=== PATIENT | male | born 1980 | race Caucasian/White ===

== ENCOUNTER 2017-12-31 17:15 | Emergency (ER) | payer OTHER ==
[~2017-12-31] VITALS: Ht 172.7 cm; Wt 72.6 kg
--- NOTE | 2017-12-31 18:22 | ED Chest Pain ---
General Chief Complaint: Chest Wall/Rib Pain Stated Complaint: CHEST PAIN Nursing Triage Note: AMB TO ROOM C/O CHEST PAIN FOR 2 DAYS WHEN TAKING DEEP BREATH. NO PAIN ON ADMIT. Nursing Sepsis Screen: No Definite Risk Source: patient Exam Limitations: no limitations History of Present Illness Date Seen by Provider: Dec 31, 2017 Time Seen by Provider: 17:48 Initial Comments Patient presents to the ER with a chief complaint that today he was expressing some pinprick sensations in the middle of his chest and his left chest but his last for a few seconds each and a total experience lasted for 10:15 minutes. At time he got to the ER. He says experience these sensations off and on for the past year but they've gotten progressively more frequent in the last week. 2 weeks. He says been taking L-arginine supplements and wonders it maybe those or why. He has no previous personal or family history of coronary artery disease. He does not smoke cigarettes he stopped drinking years ago. He does not use any recreational drugs. He says he was working out progressing pretty hard doing weight lifting and about 5 or 6 days ago he felt that he had some pain in his back so he started taking it easy. He's never had pain in his mid thoracic before. He has no other history of trauma. He is not having a cough, shortness of breath, nausea, fatigue, weakness, sweats, numbness, paresthesias in the hands. He says he is anxious about this. Incidentally he also has been for the past year having some pains in his ankles, knees and hands which she went saw his private doctor for and he thought maybe he had calcifications so he found a supplement online called K2 vitamins which are reported to remove calcium from the joints. He started taking that 5 days ago about the time his symptoms began to intensify. He stopped taking them today. Allergies and Home Medications Allergies Coded Allergies: No Known Drug Allergies (Unverified , 12/31/17) Home Medications No Active Prescriptions or Reported Meds Review of Systems Constitutional: No chills, No diaphoresis EENTM: No Blurred Vision, No Double Vision Respiratory: Denies Cough, Denies Shortness of Air Cardiovascular: See HPI, Denies Chest Pain, Denies Edema, Denies Irregular Heart Rate, Denies Lightheadedness, Denies Palpitations, Denies Syncope Gastrointestinal: Denies Abdominal Pain, Denies Constipated, Denies Diarrhea, Denies Nausea, Denies Poor Appetite, Denies Vomiting Genitourinary: Denies Burning, Denies Discharge Musculoskeletal: No joint swelling, No muscle pain, No muscle stiffness, No muscle twitching, No muscle weakness Past Jljhlaf-Xdbaxg-Knqcpv Hx Patient Social History Alcohol Use: Denies Use Recreational Drug Use: No Smoking Status: Never a Smoker Recent Foreign Travel: No Contact w/Someone Who Travel: No Recent Infectious Disease Expo: No Surgeries History of Surgeries: No Respiratory History of Respiratory Disorde: No Cardiovascular History of Cardiac Disorders: No Neurological History of Neurological Disord: No Genitourinary History of Genitourinary Disor: No Gastrointestinal History of Gastrointestinal Di: No Musculoskeletal History of Musculoskeletal Dis: No Endocrine History of Endocrine Disorders: No HEENT History of HEENT Disorders: No Cancer History of Cancer: No Psychosocial History of Psychiatric Problem: No Integumentary History of Skin or Integumenta: No Blood Transfusions History of Blood Disorders: No Physical Exam Vital Signs Vital Signs - First Documented 12/31/17 17:31 Temp 98.3 Pulse 92 Resp 18 B/P (MAP) 158/97 (117) O2 Delivery Room Air Capillary Refill : Less Than 3 Seconds General Appearance: No Apparent Distress, WD/WN HEENT: PERRL/EOMI, Normal ENT Inspection, Pharynx Normal Neck: Full Range of Motion, Non Tender, Supple Respiratory: Chest Non Tender, Lungs Clear, Normal Breath Sounds, No Accessory Muscle Use, No Respiratory Distress Cardiovascular: Regular Rate, Rhythm, No Edema, No Gallop, No Murmur, Normal Peripheral Pulses Gastrointestinal: Normal Bowel Sounds, Non Tender, Soft Extremity: Non Tender, No Calf Tenderness, No Pedal Edema Neurologic/Psychiatric: Alert, Oriented x3, No Motor/Sensory Deficits, Normal Mood/Affect, vocational aide II-XII Norm as Tested Skin: Normal Color, Warm/Dry Other comments No pain in his chest presently and not reproduced by direct palpation. He has no pain to direct palpation on her around his spine. Progress/Results/Core Measures Results/Orders Lab Results Laboratory Tests Test 12/31/17 17:42 Range/Units White Blood Count 7.4 4.3-11.0 10^3/uL Red Blood Count 5.23 4.35-5.85 10^6/uL Hemoglobin 15.5 13.3-17.7 G/DL Hematocrit 43 40-54 % Mean Corpuscular Volume 82 80-99 FL Mean Corpuscular Hemoglobin 30 25-34 PG Mean Corpuscular Hemoglobin Concent 36 32-36 G/DL Red Cell Distribution Width 12.4 10.0-14.5 % Platelet Count 167 130-400 10^3/uL Mean Platelet Volume 12.0 H 7.4-10.4 FL Neutrophils (%) (Auto) 75 42-75 % Lymphocytes (%) (Auto) 18 12-44 % Monocytes (%) (Auto) 5 0-12 % Eosinophils (%) (Auto) 2 0-10 % Basophils (%) (Auto) 0 0-10 % Neutrophils # (Auto) 5.5 1.8-7.8 X 10^3 Lymphocytes # (Auto) 1.3 1.0-4.0 X 10^3 Monocytes # (Auto) 0.4 0.0-1.0 X 10^3 Eosinophils # (Auto) 0.2 0.0-0.3 10^3/uL Basophils # (Auto) 0.0 0.0-0.1 10^3/uL Prothrombin Time 12.9 12.2-14.7 SEC INR Comment 1.0 0.8-1.4 Activated Partial Thromboplast Time 31 24-35 SEC Sodium Level 138 135-145 MMOL/L Potassium Level 3.6 3.6-5.0 MMOL/L Chloride Level 105 98-107 MMOL/L Carbon Dioxide Level 25 21-32 MMOL/L Anion Gap 8 5-14 MMOL/L Blood Urea Nitrogen 21 H 7-18 MG/DL Creatinine 1.03 0.60-1.30 MG/DL Estimat Glomerular Filtration Rate > 60 BUN/Creatinine Ratio 20 Glucose Level 139 H 70-105 MG/DL Calcium Level 9.3 8.5-10.1 MG/DL Magnesium Level 2.0 1.8-2.4 MG/DL Total Bilirubin 0.9 0.1-1.0 MG/DL Aspartate Amino Transf (AST/SGOT) 17 5-34 U/L Alanine Aminotransferase (ALT/SGPT) 33 0-55 U/L Alkaline Phosphatase 64 40-136 U/L Myoglobin 24.5 10.0-92.0 NG/ML Troponin I < 0.30 <0.30 NG/ML C-Reactive Protein High Sensitivity 0.07 0.00-0.50 MG/DL Total Protein 6.9 6.4-8.2 GM/DL Albumin 4.5 3.2-4.5 GM/DL My Orders Orders - LUCINA SANTIAGO Cbc With Automated Diff (12/31/17 18:14) Magnesium (12/31/17 18:14) Cardiac Profile 1 (12/31/17 18:14) Comprehensive Metabolic Panel (12/31/17 18:14) Myoglobin Serum (12/31/17 18:14) Protime With Inr (12/31/17 18:14) Partial Thromboplastin Time (12/31/17 18:14) O2 (12/31/17 18:14) Monitor-Rhythm Ecg Trace Only (12/31/17 18:14) Lipid Panel (01/01/18 06:00) Saline Lock/Iv-Start (12/31/17 18:14) Chest Pa/Lat (2 View) (12/31/17 18:14) Hs C Reactive Protein (12/31/17 18:25) Vital Signs/I&O Vital Sign - Last 12Hours 12/31/17 17:31 Temp 98.3 Pulse 92 Resp 18 B/P (MAP) 158/97 (117) O2 Delivery Room Air Blood Pressure Mean: 117 Progress Note : Time: 18:21 Progress Note His paresthesias sound like they are either neurologic or anxiety based. He was hyperventilating with initial interview. He is calm down we've had a talk about all of his concerns. Initial EKG unremarkable. We'll check a troponin as well as some labs looking for inflammatory markers and if none of these are positive talk to him about seeing his doctor outpatient for further evaluation. ECG Initial ECG Impression Date: Dec 31, 2017 Initial ECG Impression Time: 17:29 Initial ECG Rate: 94 Initial ECG Rhythm: Normal Sinus Initial ECG Intervals: Normal Initial ECG Impression: Normal Initial ECG Comparisson: No Previous ECG Available Comment No ST segment elevation or depression. Diagnostic Imaging Diagonstic Imaging: Xray Plain Films/CT/US/NM/MRI: chest (2 v) Comments NAME: FABRIZIO BENNETT [facility] REC#: [id number] PHYSICIAN: LUCINA SANTIAGO MD CC: JOE SILVERMAN MD; LUCINA SANTIAGO Page 1 of 1 RADIOLOGY REPORT VIA [facility], [facility]. [place], [place] CC: JOE SILVERMAN MD; LUCINA SANTIAGO Page 1 of 1 RADIOLOGY REPORT NAME: FABRIZIO BENNETT [facility] REC#: [id number] PT STATUS: REG ER : 1980 PHYSICIAN: LUCINA SANTIAGO MD ADMIT DATE: 12/31/17/ER Signed Date of Exam: 12/31/17 CHEST PA/LAT (2 VIEW) INDICATION: Chest pain for 2 days EXAMINATION: PA and lateral views of the chest. FINDINGS: The heart size and vascularity are normal. Lungs are clear. There is no effusion. There is no acute bony abnormality. IMPRESSION: No acute abnormality is seen. Dictated by: Dictated on workstation # [id number] Dict: 12/31/17 183 Trans: 12/31/171845 Interpreted by: JOE SILVERMAN MD Electronically signed by: JOE SILVERMAN MD 12/31/171845 Reviewed: Reviewed by Me Departure Impression Impression: Primary Impression: Paresthesias Additional Impression: Chest pain Qualified Codes: R07.89 - Other chest pain Disposition: HOME, SELF-CARE Condition: Stable Departure-Patient Inst. Decision time for Depature: 19:06 Referrals: NO,LOCAL PHYSICIAN (PCP) Primary Care Physician Patient Instructions: Chest Pain That Is Not Caused by the Heart (DC) Add. Discharge Instructions: Drink plenty of water and use ibuprofen 800 mg every 8 hours for the next 2 weeks. If you're not having any symptoms for 3 or 4 days then you can discontinue the ibuprofen early. Go easy on your workout but continued to be active over the next 1-2 weeks. If your symptoms are not resolved in 2 weeks you should follow up with your primary care physician to discuss what other possible things could be causing your symptoms. Discontinue the use of your vitamins and supplements. If you begin to have burning sensation in your stomach or chest region discontinue the ibuprofen/Naprosyn and follow up with your primary care physician. All discharge instructions reviewed with patient and/or family. Voiced understanding. Scripts No Active Prescriptions or Reported Meds Work/School Note: Work Release Form Date Seen in the Emergency Department: Dec 31, 2017 Return to Work: Jan 01, 2018 Restrictions: No Restrictions Copy Copies To 1: JOE ARNDT MD, TITUS J Dec 31, 2017 18:22
[2017-12-31 18:24] LABS: BASOPHILS % (AUTO) 0 % (0-10); EOSINOPHILS # (AUTO) 0.2 10^3/uL (0.0-0.3); EOSINOPHILS % (AUTO) 2 % (0-10); HEMATOCRIT 43 % (40-54); HEMOGLOBIN 15.5 G/DL (13.3-17.7); LYMPHOCYTES # (AUTO) 1.3 X 10^3 (1.0-4.0); LYMPHOCYTES % (AUTO) 18 % (12-44); MEAN CORPUSCULAR HEMOGLOBIN 30 PG (25-34); MEAN CORPUSCULAR HGB CONC 36 G/DL (32-36); MEAN CORPUSCULAR VOLUME 82 FL (80-99); MONOCYTES # (AUTO) 0.4 X 10^3 (0.0-1.0); MONOCYTES % (AUTO) 5 % (0-12); NEUTROPHILS # (AUTO) 5.5 X 10^3 (1.8-7.8); NEUTROPHILS % (AUTO) 75 % (42-75); PLATELET COUNT 167 10^3/uL (130-400); RED BLOOD COUNT 5.23 10^6/uL (4.35-5.85); RED CELL DISTRIBUTION WIDTH 12.4 % (10.0-14.5); WHITE BLOOD COUNT 7.4 10^3/uL (4.3-11.0)
[2017-12-31 18:34] LABS: PROTHROMBIN TIME PATIENT 12.9 SEC (12.2-14.7)
--- NOTE | 2017-12-31 18:36 | Diagnostic Imaging Report ---
INDICATION: Chest pain for 2 days EXAMINATION: PA and lateral views of the chest. FINDINGS: The heart size and vascularity are normal. Lungs are clear. There is no effusion. There is no acute bony abnormality. IMPRESSION: No acute abnormality is seen. Dictated by: Dictated on workstation # [id number]
[2017-12-31 18:42] LABS: ALANINE AMINOTRANSFERASE 33 U/L (0-55); ALBUMIN 4.5 GM/DL (3.2-4.5); ALKALINE PHOSPHATASE 64 U/L (40-136); BILIRUBIN,TOTAL 0.9 MG/DL (0.1-1.0); BUN/CREATININE RATIO 20; CALCIUM 9.3 MG/DL (8.5-10.1); CARBON DIOXIDE 25 MMOL/L (21-32); CHLORIDE 105 MMOL/L (98-107); CREATININE SERUM 1.03 MG/DL (0.60-1.30); GFR ESTIMATED > 60; GLUCOSE 139 MG/DL (70-105); MYOGLOBIN SERUM 24.5 NG/ML (10.0-92.0); POTASSIUM 3.6 MMOL/L (3.6-5.0); SODIUM 138 MMOL/L (135-145); TOTAL PROTEIN 6.9 GM/DL (6.4-8.2)
[2017-12-31 19:15] VITALS: BP 111/76
== END 2017-12-31 19:15 | disposition home or self-care (01) ==
LOC: ER 17:18
DX: R07.89 Other chest pain (principal); R20.2 Paresthesia of skin
CPT/HCPCS: 36415; 71046; 80053; 83735; 83874; 84484; 85025; 85610; 85730; 86141; 93005

== ENCOUNTER 2018-08-06 11:59 | Outpatient (CLI) | payer OTHER ==
[~2018-08-06] VITALS: Ht 172.7 cm; Wt 71.7 kg
[2018-08-06] MEDS ORDERED: AMOX500C2 PO (15:50)
[2018-08-06] MEDS ORDERED: IBUP-2055 PO (15:50)
[2018-08-07] MEDS ORDERED: ACHD5005 PO (11:20)
== END 2018-08-06 15:58 | disposition home or self-care (01) ==
LOC: PREOP 11:59
PROVIDERS: ATTEND Surgery
DX: Z01.818 Encounter for other preprocedural examination (principal)

== ENCOUNTER 2018-08-07 08:39 | Day surgery (SDC) | payer OTHER ==
[~2018-08-07] VITALS: Ht 172.7 cm; Wt 71.7 kg
[~2018-08-07 08:39] MED LIST: AMOX500C2 PO; IBUP-2055 PO
[2018-08-07 08:50] VITALS: BP 118/72
[2018-08-07] MEDS ORDERED: ceFAZolin INJECTION 1,000 MG in NS (IVPB) 50 ML IV ONE (09:00)
[2018-08-07] MEDS ORDERED: LACTATED RINGERS 1,000 ML IV PRN (09:29)
--- NOTE | 2018-08-07 09:43 | Progress Note-Pre Operative ---
Pre-Operative Progress Note H&P Reviewed The H&P was reviewed, patient examined and no changes noted. Date Seen by Provider: Aug 06, 2018 Time Seen by Provider: 12:05 Date H&P Reviewed: Aug 07, 2018 Time H&P Reviewed: 09:43 Pre-Operative Diagnosis: Infected cira.cyst-occipital region DYLAN LEGER MD Aug 07, 2018 09:43
[2018-08-07] MEDS ORDERED: CATHETER FLUSH 10 ML SYR IV PRN (09:45)
[2018-08-07] MEDS ORDERED: PROPOFOL INJECTION 50 ML IV ONE (10:25)
[2018-08-07] MEDS ORDERED: LIDOCAINE PF 2% 2 ML (XYLOCAINE) VIAL ONE ×2 (10:25→10:29)
[2018-08-07] MEDS ORDERED: MIDAZOLAM 2 MG/2 ML (VERSED) VIAL ONE (10:26)
[2018-08-07] MEDS ORDERED: fentaNYL INJECTION 100 MCG/2 ML AMP ONE (10:26)
[2018-08-07] MEDS ORDERED: BUP/EPI 0.5% 1:200,000 (SENSORCAINE) 30 ML VIAL ONE (10:55)
[2018-08-07] MEDS ORDERED: BUPIVACAINE 0.5% 30 ML (SENSORCAINE) VIAL ONE (10:55)
[2018-08-07] MEDS ORDERED: ACHD5005 PO (11:20)
--- NOTE | 2018-08-07 11:20 | Discharge Inst-Simple/Standard ---
Discharge Inst-Standard Discharge Medications New, Converted or Re-Newed RX: RX on Chart Patient Instructions/Follow Up Plan of Care/Instructions/FU: dressings may be replaced with a Band-Aid in 48 hours. Follow-up with my nurse in 10 days for suture removal Activity as Tolerated: Yes Discharge Diet: No Restrictions DYLAN LEGER MD Aug 07, 2018 11:20
[2018-08-07] MEDS ORDERED: MEPERIDINE (DEMEROL) INJ 50 MG/ML IVP ONE (12:00)
[2018-08-07] MEDS ORDERED: morphine INJ 10 MG/ML 1ML (SYR OR VIAL) IVP ONE (12:00)
[2018-08-07] MEDS ORDERED: ONDANSETRON 4 MG/2 ML (SDV) Z0FRAN IVP PRN (12:00)
[2018-08-07 12:20] VITALS: BP 99/58
[2018-08-07 12:50] VITALS: BP 102/63
[2018-08-07 13:20] VITALS: BP 108/65
--- NOTE | 2018-08-07 13:30 | Operative Report ---
Operative Report Date of Procedure/Surgery Aug 07, 2018 Surgeon (s) DYLAN LEGER MD [employer] Administrator (s): Nazia Cohen (Med Student III) Post-Operative Diagnosis Same Procedure Performed Excision Description of Procedure Anesthesia Type: MAC Estimated blood loss (mL): Minimal Specimen(s) collected/removed Karthik cyst Description of the Procedure Indication for the procedure: This gentleman presented with an infected sebaceous cyst over the left occipital region of his scalp. He was offered excision. Informed consent was obtained after reviewing the details or procedure and complications of postoperative hematoma, wound infection and recurrence of the cyst. Description of the procedure: He was placed supine on the operating table and our DIGESTER COOK administered sedation, monitoring his vital signs. A gram of Ancef was administered intravenously as prophylaxis against wound infection. The area was prepared and draped in the usual sterile manner. Local anesthesia was achieved using 0.5 percent Marcaine with epinephrine. An elliptical incision about 4 cm in length was made and the cyst excised. Most this was achieved using cautery and the incision closed using 3-0 PDS for the deeper layer and 3-0 nylon for skin, in an interrupted fashion. A nonadherent dressing was then applied. He tolerated the procedure well and was taken to the recovery room in a stable condition. Findings of the Procedure See op report Allergies and Home Medications Allergies Coded Allergies: No Known Drug Allergies (Unverified , 12/31/17) Home Medications Amoxicillin 500 Mg Capsule, 500 MG PO TID, (Reported) Hydrocodone Bit/Acetaminophen 1 Tab Tab, 1 TAB PO Q6H PRN for PAIN-MODERATE Prescribed by: DYLAN LEGER on 08/07/18 1120 Patient Home Medication List Home Medication List Reviewed: Yes DYLAN LEGER MD Aug 07, 2018 13:30
[2018-08-07 13:40] VITALS: BP 108/65
== END 2018-08-07 13:40 | disposition home or self-care (01) ==
LOC: SDC 08:39
PROVIDERS: ATTEND Surgery
DX: L72.3 Sebaceous cyst (principal)
CPT/HCPCS: 87081